=== PATIENT | female | born 1970 | race Caucasian/White ===

== ENCOUNTER 2017-12-17 04:00 | Emergency (ER) | payer OTHER, SELFPAY ==
[~2017-12-17] VITALS: Ht 172.7 cm; Wt 78.5 kg
[2017-12-17] MEDS ORDERED: ASPIRIN 81 MG TABLET CHEW ONE (04:50)
[2017-12-17] MEDS ORDERED: ALBUTEROL/IPRATROPIUM 2.5MG/0.5MG, 3 ML ONE (04:57)
[2017-12-17] MEDS ORDERED: SODIUM CHLORIDE FLUSH 10ML SYR IVF ONE (05:00)
[2017-12-17] MEDS ORDERED: ASPIRIN 81 MG TABLET CHEW PO ONE (05:00)
[2017-12-17] MEDS ORDERED: SODIUM CHLORIDE 0.9% 1,000ML IVBOLUS ONE (05:00)
[2017-12-17] MEDS ORDERED: ALBUTEROL/IPRATROPIUM 2.5MG/0.5MG, 3 ML NPPB SCH (05:00)
[2017-12-17 05:25] LABS: BASOPHILS # (AUTO) 0.05 x10^3/uL (0-0.1); BASOPHILS % (AUTO) 1 % (0-1); EOSINOPHILS # (AUTO) 0.15 x10^3/uL (0-0.4); EOSINOPHILS % (AUTO) 2 % (1-7); LYMPHOCYTES # (AUTO) 2.63 x10^3/uL (1-3.4); LYMPHOCYTES % (AUTO) 34 % (22-44); MD NO; MEAN CORPUSCULAR HEMOGLOBIN 30.1 pg (27.0-34.8); MEAN CORPUSCULAR HGB CONC 33.7 g/dL (32.4-35.8); MEAN CORPUSCULAR VOLUME 89.1 fL (80-100); MEAN PLATELET VOLUME 7.5 fL (7.4-10.4); MONOCYTES # (AUTO) 0.46 x10^3/uL (0.2-0.8); MONOCYTES % (AUTO) 6 % (2-9); NEUTROPHILS # (AUTO) 4.38 x10^3/uL (1.8-6.8); NEUTROPHILS % (AUTO) 57 % (42-75); PLATELET COUNT 333 x10^3/uL (130-400); RED BLOOD COUNT 4.81 x10^6/uL (3.82-5.3); RED CELL DISTRIBUTION WIDTH 14.1 % (9.6-15.2)
[2017-12-17 05:37] LABS: ANION GAP 8 mmol/L (5-15); CALCIUM 8.6 mg/dL (8.5-10.1); CHLORIDE 113 mmol/L (98-107); CREATININE 0.63 mg/dL (0.55-1.02)
[2017-12-17 05:41] LABS: TROPONIN I < 0.015 ng/mL (0.000-0.045)
[2017-12-17 06:51] VITALS: BP 99/60
== END 2017-12-17 07:26 | disposition home or self-care (01) ==
LOC: ED 07:15
DX: J45.41 Moderate persistent asthma with (acute) exacerbation (principal); F41.9 Anxiety disorder, unspecified
CPT/HCPCS: 36415; 71046; 80048; 82040; 84484; 85025; 93005; 94640; 96360; 99285; J7030; J7620

== ENCOUNTER 2018-04-02 22:28 | Inpatient (IN) | payer OTHER ==
[~2018-04-02] VITALS: Ht 170.2 cm; Wt 83.1 kg
[2018-04-02] MEDS ORDERED: ALBUTEROL 0.5%, 20ML ONE (22:49)
[2018-04-02] MEDS ORDERED: ALBUTEROL 0.5%, 20ML NPPB SCH (23:00)
[2018-04-02] MEDS ORDERED: SODIUM CHLORIDE 0.9% 1,000ML IVBOLUS ONE (23:00)
[2018-04-02 23:11] LABS: BASOPHILS # (AUTO) 0.02 x10^3/uL (0-0.1); BASOPHILS % (AUTO) 0 % (0-1); EOSINOPHILS # (AUTO) 0.01 x10^3/uL (0-0.4); EOSINOPHILS % (AUTO) 0 % (1-7); LYMPHOCYTES # (AUTO) 0.68 x10^3/uL (1-3.4); LYMPHOCYTES % (AUTO) 6 % (22-44); MD NO; MEAN CORPUSCULAR HEMOGLOBIN 30.4 pg (27.0-34.8); MEAN CORPUSCULAR HGB CONC 33.5 g/dL (32.4-35.8); MEAN CORPUSCULAR VOLUME 90.7 fL (80-100); MEAN PLATELET VOLUME 7.9 fL (7.4-10.4); MONOCYTES # (AUTO) 0.09 x10^3/uL (0.2-0.8); MONOCYTES % (AUTO) 1 % (2-9); NEUTROPHILS # (AUTO) 9.97 x10^3/uL (1.8-6.8); NEUTROPHILS % (AUTO) 93 % (42-75); PLATELET COUNT 324 x10^3/uL (130-400); RED BLOOD COUNT 4.86 x10^6/uL (3.82-5.3); RED CELL DISTRIBUTION WIDTH 14.3 % (9.6-15.2)
[2018-04-02 23:21] LABS: ALBUMIN 3.9 g/dL (3.4-5.0); ANION GAP 9 mmol/L (5-15); CALCIUM 8.6 mg/dL (8.5-10.1); CHLORIDE 112 mmol/L (98-107); CREATININE 0.81 mg/dL (0.55-1.02)
[2018-04-02 23:24] LABS: TROPONIN I < 0.015 ng/mL (0.000-0.045)
[2018-04-02] MEDS ORDERED: SODIUM CHLORIDE 0.9% 1,000 ML IV ONE (23:56)
[2018-04-03] MEDS ORDERED: ONDANSETRON 2MG/ML, 2ML IVPush PRN ×2
[2018-04-03] MEDS ORDERED: GUAIFENESIN/DM 200-20MG, 10ML UDC PO PRN
[2018-04-03] MEDS ORDERED: POLYETHYLENE GLYCOL 17 GM PACKET PO PRN
[2018-04-03] MEDS ORDERED: BISACODYL 10 MG SUPP PR PRN
[2018-04-03] MEDS ORDERED: SODIUM CHLORIDE 0.9% 1,000ML IVBOLUS ONE
[2018-04-03] MEDS ORDERED: methylPREDNISolone SOD SUCC 125 MG/2 ML IVPush ONE (00:30)
[2018-04-03] MEDS ORDERED: ALBUTEROL SULFATE 2.5 MG/3 ML NPPB PRN (00:30)
[2018-04-03 01:21] VITALS: BP 99/54
[2018-04-03] MEDS: ACETAMINOPHEN 325 MG TABLET PO PRN (01:23)
[2018-04-03] MEDS: AZITHROMYCIN 500 MG in SODIUM CHLORIDE 0.9% 250 ML IV SCH (01:24)
[2018-04-03] MEDS: HEPARIN 5,000 UNITS/ML, 1ML SQ SCH ×2 (01:24→09:04)
[2018-04-03 01:35] VITALS: BP 99/54
[2018-04-03 02:43] LABS: BASOPHILS % (AUTO) 0 % (0-1); EOSINOPHILS % (AUTO) 0 % (1-7); LYMPHOCYTES # (AUTO) 0.57 x10^3/uL (1-3.4); LYMPHOCYTES % (AUTO) 7 % (22-44); MD NO; MEAN CORPUSCULAR HEMOGLOBIN 29.8 pg (27.0-34.8); MEAN CORPUSCULAR VOLUME 90.3 fL (80-100); MEAN PLATELET VOLUME 7.7 fL (7.4-10.4); MONOCYTES # (AUTO) 0.14 x10^3/uL (0.2-0.8); MONOCYTES % (AUTO) 2 % (2-9); NEUTROPHILS # (AUTO) 7.61 x10^3/uL (1.8-6.8); NEUTROPHILS % (AUTO) 92 % (42-75); PLATELET COUNT 246 x10^3/uL (130-400); RED BLOOD COUNT 4.12 x10^6/uL (3.82-5.3)
[2018-04-03 02:55] LABS: ALANINE AMINOTRANSFERASE 19 U/L (12-78); ALBUMIN 3.3 g/dL (3.4-5.0); ANION GAP 11 mmol/L (5-15); CALCIUM 7.4 mg/dL (8.5-10.1); CHLORIDE 118 mmol/L (98-107)
[2018-04-03 02:57] LABS: ALKALINE PHOSPHATASE 60 U/L (45-117); BILIRUBIN,TOTAL 0.1 mg/dL (0.2-1.0)
[2018-04-03] MEDS: ALBUTEROL/IPRATROPIUM 2.5MG/0.5MG, 3 ML NPPB SCH ×5 (06:00→22:15)
[2018-04-03 06:38] LABS: AMPHETAMINE SCREEN, URINE Negative (Negative); BARBITURATE SCREEN, URINE Negative (Negative); BENZODIAZEPINE SCREEN, URINE Negative (Negative); CANNABINOID SCREEN, URINE Negative (Negative); COCAINE SCREEN, URINE Negative (Negative); METHADONE SCREEN, URINE Negative (Negative); OPIATE SCREEN, URINE Negative (Negative)
[2018-04-03 07:31] VITALS: BP 133/75
[2018-04-03] MEDS: SODIUM CHLORIDE 0.9% 1,000 ML IV SCH ×3 (08:00→20:55)
[2018-04-03] MEDS ORDERED: SODIUM CHLORIDE 0.9%, 250ML IVBOLUS ONE (08:00)
[2018-04-03 08:21] LABS: ALBUMIN 3.3 g/dL (3.4-5.0); ANION GAP 12 mmol/L (5-15); CALCIUM 7.7 mg/dL (8.5-10.1); CHLORIDE 115 mmol/L (98-107); CREATININE 0.81 mg/dL (0.55-1.02)
[2018-04-03] MEDS ORDERED: methylPREDNISolone SOD SUCC 125 MG/2 ML IVPush SCH (08:30)
[2018-04-03] MEDS: SENNA/DOCUSATE TABLET PO SCH ×2 (09:00→14:38)
[2018-04-03] MEDS: methylPREDNISolone SOD SUCC 125 MG/2 ML IVPush SCH ×2 (09:04→15:54)
[2018-04-03] MEDS: CEFTRIAXONE 1,000 MG in SODIUM CHLORIDE 0.9% 50 ML IV SCH (09:04)
[2018-04-03] MEDS: BENZONATATE 100 MG CAPSULE PO SCH ×3 (09:05→19:50)
[2018-04-03 10:34] LABS: MICROSCOPIC AUTO
[2018-04-03] MEDS: FLUTICASONE/VILANTEROL 100-25MCG/INH INH SCH (10:35)
[2018-04-03 10:41] LABS: CULTURE INDICATED? NO
[2018-04-03] MEDS: NICOTINE 7 MG/24 HR PATCH.TD24 TD SCH (11:51)
[2018-04-03 12:35] VITALS: BP 123/77
[2018-04-03] MEDS ORDERED: HEPARIN 5,000 UNITS/ML, 1ML ONE (15:37)
[2018-04-03] MEDS: INSULIN LISPRO 100 UNITS/ML, PEN SQ-INSULIN SCH ×2 (17:13→19:48)
[2018-04-03 19:10] VITALS: BP 143/70
[2018-04-03] MEDS ORDERED: CALCIUM CARBONATE 500 MG TAB.CHEW PO PRN (20:00)
[2018-04-04] MEDS: methylPREDNISolone SOD SUCC 125 MG/2 ML IVPush SCH ×3 (00:25→16:47)
[2018-04-04] MEDS: AZITHROMYCIN 500 MG in SODIUM CHLORIDE 0.9% 250 ML IV SCH (00:25)
[2018-04-04 01:05] VITALS: BP 124/74
[2018-04-04 05:27] LABS: MEAN CORPUSCULAR HEMOGLOBIN 30.6 pg (27.0-34.8); MEAN CORPUSCULAR HGB CONC 33.5 g/dL (32.4-35.8); MEAN CORPUSCULAR VOLUME 91.3 fL (80-100); MEAN PLATELET VOLUME 7.8 fL (7.4-10.4); PLATELET COUNT 270 x10^3/uL (130-400); RED BLOOD COUNT 4.19 x10^6/uL (3.82-5.3); RED CELL DISTRIBUTION WIDTH 14.5 % (9.6-15.2)
[2018-04-04 05:36] LABS: ALBUMIN 3.3 g/dL (3.4-5.0); ANION GAP 8 mmol/L (5-15); CALCIUM 8.3 mg/dL (8.5-10.1); CHLORIDE 114 mmol/L (98-107); CREATININE 0.58 mg/dL (0.55-1.02)
[2018-04-04 05:53] LABS: BASOPHILS # (AUTO) 0.01 x10^3/uL (0-0.1); BASOPHILS % (AUTO) 0 % (0-1); EOSINOPHILS % (AUTO) 0 % (1-7); LYMPHOCYTES # (AUTO) 0.63 x10^3/uL (1-3.4); LYMPHOCYTES % (AUTO) 4 % (22-44); MD SCAN; MONOCYTES # (AUTO) 0.16 x10^3/uL (0.2-0.8); MONOCYTES % (AUTO) 1 % (2-9); NEUTROPHILS # (AUTO) 15.73 x10^3/uL (1.8-6.8); NEUTROPHILS % (AUTO) 95 % (42-75)
[2018-04-04] MEDS: SODIUM CHLORIDE 0.9% 1,000 ML IV SCH ×2 (06:16→16:47)
[2018-04-04] MEDS: INSULIN LISPRO 100 UNITS/ML, PEN SQ-INSULIN SCH ×4 (07:00→20:23)
[2018-04-04] MEDS: ALBUTEROL/IPRATROPIUM 2.5MG/0.5MG, 3 ML NPPB SCH ×3 (07:16→20:39)
[2018-04-04 07:37] VITALS: BP 133/84
[2018-04-04] MEDS ORDERED: POLYETHYLENE GLYCOL 17 GM PACKET NG ONE (09:00)
[2018-04-04] MEDS: CEFTRIAXONE 1,000 MG in SODIUM CHLORIDE 0.9% 50 ML IV SCH (11:38)
[2018-04-04] MEDS: BENZONATATE 100 MG CAPSULE PO SCH ×3 (11:38→20:23)
[2018-04-04] MEDS: NICOTINE 7 MG/24 HR PATCH.TD24 TD SCH (11:39)
[2018-04-04] MEDS: FLUTICASONE/VILANTEROL 100-25MCG/INH INH SCH (11:45)
[2018-04-04] MEDS: PANTOPROZOLE 40MG TABLET PO SCH (11:47)
[2018-04-04 14:12] VITALS: BP 145/97
[2018-04-04] MEDS ORDERED: SODIUM CHLORIDE INHALATION 7%, 4 ML NPPB ONE ×2 (16:30→22:00)
[2018-04-04] MEDS: ACETAMINOPHEN 325 MG TABLET PO PRN (17:16)
[2018-04-04 19:17] VITALS: BP 135/80
[2018-04-05] MEDS: AZITHROMYCIN 500 MG in SODIUM CHLORIDE 0.9% 250 ML IV SCH (00:16)
[2018-04-05] MEDS: SODIUM CHLORIDE 0.9% 1,000 ML IV SCH ×2 (00:17→07:56)
[2018-04-05] MEDS: methylPREDNISolone SOD SUCC 125 MG/2 ML IVPush SCH ×2 (00:20→07:57)
[2018-04-05 02:27] VITALS: BP 118/75
[2018-04-05 05:03] LABS: MEAN CORPUSCULAR HGB CONC 32.6 g/dL (32.4-35.8); MEAN CORPUSCULAR VOLUME 92.1 fL (80-100); MEAN PLATELET VOLUME 7.7 fL (7.4-10.4); PLATELET COUNT 284 x10^3/uL (130-400); RED BLOOD COUNT 4.37 x10^6/uL (3.82-5.3); RED CELL DISTRIBUTION WIDTH 14.5 % (9.6-15.2)
[2018-04-05 05:14] LABS: ANION GAP 10 mmol/L (5-15); CALCIUM 8.5 mg/dL (8.5-10.1); CHLORIDE 112 mmol/L (98-107)
[2018-04-05 05:15] LABS: CREATININE 0.61 mg/dL (0.55-1.02)
[2018-04-05 05:44] LABS: BASOPHILS % (AUTO) 0 % (0-1); EOSINOPHILS % (AUTO) 0 % (1-7); LYMPHOCYTES # (AUTO) 0.55 x10^3/uL (1-3.4); LYMPHOCYTES % (AUTO) 4 % (22-44); MD SCAN; MONOCYTES # (AUTO) 0.13 x10^3/uL (0.2-0.8); MONOCYTES % (AUTO) 1 % (2-9); NEUTROPHILS # (AUTO) 12.95 x10^3/uL (1.8-6.8); NEUTROPHILS % (AUTO) 95 % (42-75)
[2018-04-05] MEDS: ALBUTEROL/IPRATROPIUM 2.5MG/0.5MG, 3 ML NPPB SCH (07:25)
[2018-04-05 07:56] VITALS: BP 149/93
[2018-04-05] MEDS: CEFTRIAXONE 1,000 MG in SODIUM CHLORIDE 0.9% 50 ML IV SCH (07:56)
[2018-04-05] MEDS: BENZONATATE 100 MG CAPSULE PO SCH (07:57)
[2018-04-05] MEDS: INSULIN LISPRO 100 UNITS/ML, PEN SQ-INSULIN SCH ×2 (07:57→11:00)
[2018-04-05] MEDS: PANTOPROZOLE 40MG TABLET PO SCH (07:57)
[2018-04-05] MEDS: FLUTICASONE/VILANTEROL 100-25MCG/INH INH SCH (07:58)
[2018-04-05 08:00] VITALS: BP 149/93
[2018-04-05] MEDS: SENNA/DOCUSATE TABLET PO SCH (09:00)
[2018-04-05] MEDS: NICOTINE 7 MG/24 HR PATCH.TD24 TD SCH (11:30)
[2018-04-05] MEDS ORDERED: ACET325T14 PO (12:19)
[2018-04-05] MEDS ORDERED: SENN1TAB7 PO (12:19)
[2018-04-05] MEDS ORDERED: METH4TAB2 PO (12:19)
[2018-04-05] MEDS ORDERED: ALBU18HF PO (12:19)
[2018-04-05] MEDS ORDERED: NICO-485 TD (12:19)
[2018-04-05] MEDS ORDERED: PANT40TA5 PO (12:19)
[2018-04-05] MEDS ORDERED: BENZ-17 PO (12:19)
[2018-04-05] MEDS ORDERED: FLUT1AER INH (12:19)
== END 2018-04-05 14:33 | disposition home or self-care (01) | DRG 189 ==
LOC: ED 23:10 → EDIP 23:59 → 4EST 04-03 00:36
PROVIDERS: ADMIT Hospitalist; ATTEND Hospitalist
DX: J96.01 Acute respiratory failure with hypoxia (principal); E87.2 Acidosis; J44.1 Chronic obstructive pulmonary disease with (acute) exacerbation; E87.8 Other disorders of electrolyte and fluid balance, not elsewhere classified; F17.210 Nicotine dependence, cigarettes, uncomplicated; I10 Essential (primary) hypertension; Z82.49 Family history of ischemic heart disease and other diseases of the circulatory system; Z91.048 Other nonmedicinal substance allergy status; R00.0 Tachycardia, unspecified; R73.9 Hyperglycemia, unspecified; R82.4 Acetonuria; R81 Glycosuria; R31.9 Hematuria, unspecified
CPT/HCPCS: 36415; 36600; 84145; 99291; J7620; 71045; 71046; 80048; 80053; 80069; 80307; 81001; 82040; 82803; 82962; 83036; 83605; 83880; 84484; 84703; 85025; 87040; 87205; 93005; 94640; 94644; J0456; J0696; J1644; J1815; J2930; J7030; J7050

== ENCOUNTER → 2018-04-29 | Outpatient (CLI) | payer OTHER ==
[~2018-04-29] MED LIST: ACET325T14 PO; ALBU18HF PO; BENZ-17 PO; FLUT1AER INH; METH4TAB2 PO; NICO-485 TD; PANT40TA5 PO; SENN1TAB7 PO
== END | disposition home or self-care (01) ==
LOC: LAB 10:01
PROVIDERS: ATTEND Family Medicine
DX: M51.36 Other intervertebral disc degeneration, lumbar region (principal)
CPT/HCPCS: 72110; 74018

== ENCOUNTER 2020-12-01 18:34 | Emergency (ER) | payer BC ==
[~2020-12-01] VITALS: Ht 170.2 cm; Wt 87.5 kg
[~2020-12-01 18:34] MED LIST changes: -PANT40TA5 PO; +PANT40TA6 PO; +SENN-177 PO; -SENN1TAB7 PO
[2020-12-01] MEDS ORDERED: ASPIRIN 81 MG TABLET CHEW ONE (19:19)
[2020-12-01] MEDS ORDERED: ONDANSETRON 2MG/ML, 2ML ONE (19:19)
[2020-12-01] MEDS ORDERED: ALBUTEROL/IPRATROPIUM 2.5MG/0.5MG, 3 ML ONE (19:20)
[2020-12-01] MEDS ORDERED: LORazepam 2 MG/ML, 1ML ONE (19:21)
[2020-12-01] MEDS ORDERED: MORPHINE SULFATE 4 MG/ML, 1ML IVPush PRN (19:30)
[2020-12-01] MEDS ORDERED: SODIUM CHLORIDE FLUSH 10ML SYR IVF ONE (19:30)
[2020-12-01] MEDS ORDERED: LORazepam 2 MG/ML, 1ML IVPush ONE (19:30)
[2020-12-01] MEDS ORDERED: SODIUM CHLORIDE 0.9% 1,000ML IVBOLUS ONE (19:30)
[2020-12-01] MEDS ORDERED: ASPIRIN 81 MG TABLET CHEW PO ONE (19:30)
[2020-12-01] MEDS ORDERED: ONDANSETRON 2MG/ML, 2ML IVPush ONE (19:30)
[2020-12-01] MEDS ORDERED: ALBUTEROL/IPRATROPIUM 2.5MG/0.5MG, 3 ML NPPB SCH (19:30)
[2020-12-01 19:35] LABS: MEAN CORPUSCULAR HEMOGLOBIN 21.4 pg (27.0-34.8); MEAN CORPUSCULAR HGB CONC 31.8 g/dL (32.4-35.8); MEAN PLATELET VOLUME 7.5 fL (7.4-10.4); PLATELET COUNT 371 x10^3/uL (130-400); RED BLOOD COUNT 4.69 x10^6/uL (3.82-5.3)
[2020-12-01 19:36] LABS: ANION GAP 8 mmol/L (5-15); CALCIUM 8.5 mg/dL (8.5-10.1); CHLORIDE 112 mmol/L (98-107); CREATININE 0.67 mg/dL (0.55-1.02)
[2020-12-01 19:39] LABS: TROPONIN I < 0.015 ng/mL (0.000-0.045)
--- NOTE | 2020-12-01 19:50 | NUR ---
Pt to ER with c/o cough x 3 days. Pt states cough has gotten worse and not going away. Pt states pain in abd when coughing. Pt anxious in appearance, able to redirect and calm at times. Pt crying for . Pt A&O, has periords of hard cough. Sats in high 90's on monitor. brought back to room for emotional support. Pt medicated per order. Much more comfortable and calm. Cough less frequent.
[2020-12-01 19:57] LABS: MD YES
[2020-12-01 20:01] LABS: BASOS% (MANUAL) 1 % (0-1); EOS#(MANUAL) 0.29 x10^3/uL (0.0-0.4); EOS% (MANUAL) 3 % (1-7); LYMPH#(MANUAL) 2.28 x10^3/uL (1-3.4); LYMPHS% (MANUAL) 24 % (22-44); MONOS#(MANUAL) 0.48 x10^3/uL (0.3-2.7); MONOS% (MANUAL) 5 % (2-9); SEG#(MANUAL) 6.37 x10^3/uL (1.8-6.8); SEGS% (MANUAL) 67 % (42-75)
[2020-12-01 20:02] LABS: ANISOCYTOSIS 1+; MICROCYTOSIS 1+
[2020-12-01 20:03] LABS: HYPOCHROMIA 1+
[2020-12-01 20:04] LABS: OVALOCYTES 1+
[2020-12-01 20:05] LABS: <PLATELET ESTIMATE> ADEQUATE; SMALL PLATELETS 1+
[2020-12-01] MEDS ORDERED: DEXAMETHASONE 4 MG TABLET PO ONE (21:00)
[2020-12-01] MEDS ORDERED: DEXAMETHASONE 4 MG TABLET ONE (21:15)
[2020-12-01 21:39] VITALS: BP 106/75
--- NOTE | 2020-12-01 21:40 | NUR ---
Pt much more calm. Non-labored breathing. Resting calmly. Pt with much less frequency of cough. Pt medicated per order. Pt IV DC'd intact. Patient/Caregiver given discharge instructions and they have confirmed that they understand the instructions. Patient ambulatory with steady gait.
== END 2020-12-01 21:43 | disposition home or self-care (01) ==
LOC: ED 21:06
DX: J44.1 Chronic obstructive pulmonary disease with (acute) exacerbation (principal); Z20.822 Contact with and (suspected) exposure to COVID-19; J06.9 Acute upper respiratory infection, unspecified; J40 Bronchitis, not specified as acute or chronic; R00.0 Tachycardia, unspecified; R07.9 Chest pain, unspecified; I10 Essential (primary) hypertension; F17.210 Nicotine dependence, cigarettes, uncomplicated
CPT/HCPCS: 36415; 71045; 80048; 82040; 83880; 84484; 85025; 93005; 94640; 96361; 96374; 96375; 99285; J2060; J2405; J7030; U0003

== ENCOUNTER → 2021-02-05 | Outpatient (CLI) | payer BC | END | disposition home or self-care (01) | LOC: RAD 09:46 | PROVIDERS: ATTEND Family Medicine | DX: J18.9 Pneumonia, unspecified organism (principal) | CPT/HCPCS: 71046 ==

== ENCOUNTER → 2021-03-05 | Outpatient (CLI) | payer BC | END | disposition home or self-care (01) | LOC: RAD 09:10 | PROVIDERS: ATTEND Family Medicine | DX: J18.9 Pneumonia, unspecified organism (principal) | CPT/HCPCS: 71046 ==